=== PATIENT | male | born 1995 | race Caucasian/White ===

== ENCOUNTER 2019-09-24 13:07 | Emergency (ER) | payer OTHER ==
[~2019-09-24] VITALS: Ht 175.3 cm; Wt 90.9 kg
[2019-09-24] MEDS ORDERED: HYDROCODONE/ACETAMINOPHEN 5-325 MG TABLET PO ONE (15:00)
[2019-09-24 17:09] VITALS: BP 121/88
== END 2019-09-24 17:12 | disposition home or self-care (01) ==
LOC: EMS 13:09
DX: S00.83XA Contusion of other part of head, initial encounter (principal); S00.12XA Contusion of left eyelid and periocular area, initial encounter; S80.212A Abrasion, left knee, initial encounter; S80.211A Abrasion, right knee, initial encounter; F32.9 Major depressive disorder, single episode, unspecified; F17.210 Nicotine dependence, cigarettes, uncomplicated; Y04.8XXA Assault by other bodily force, initial encounter; Y93.89 Activity, other specified; Y92.89 Other specified places as the place of occurrence of the external cause; Y99.8 Other external cause status
CPT/HCPCS: 70450; 70486

== ENCOUNTER 2024-05-22 03:56 | Emergency (ER) | payer OTHER ==
[~2024-05-22] VITALS: Ht 177.8 cm; Wt 102.7 kg
[2024-05-22 04:14] VITALS: BP 141/68; PULSE 99; RESP 20; TEMP 98.8; O2SAT 96
[2024-05-22] MEDS: PERTUSS(ACELL),DIPH,TET/PF 0.5 ML SYRINGE [ADULT] IM. ONE (05:01)
[2024-05-22] MEDS: ACETAMINOPHEN 325 MG TABLET PO ONE (05:08)
== END 2024-05-22 06:15 | disposition home or self-care (01) ==
LOC: EMS 03:56
DX: S51.811A Laceration without foreign body of right forearm, initial encounter (principal); S40.022A Contusion of left upper arm, initial encounter; F17.210 Nicotine dependence, cigarettes, uncomplicated; F32.A Depression, unspecified; Y08.89XA Assault by other specified means, initial encounter; Y93.89 Activity, other specified; Y92.89 Other specified places as the place of occurrence of the external cause; Y99.8 Other external cause status
CPT/HCPCS: 12001; 90471; 90715; 99283

== ENCOUNTER 2024-07-22 00:57 | Emergency (ER) | payer OTHER ==
[~2024-07-22] VITALS: Ht 170.2 cm; Wt 82.0 kg
[2024-07-22 02:15] VITALS: TEMP 98.2
[2024-07-22] MEDS: LORazepam 1 MG TABLET PO ONE (02:50)
[2024-07-22 04:07] VITALS: BP 122/71; PULSE 62; RESP 16; O2SAT 98
== END 2024-07-22 04:40 | disposition home or self-care (01) ==
LOC: EMS 00:58
DX: T43.611A Poisoning by caffeine, accidental (unintentional), initial encounter (principal); F41.9 Anxiety disorder, unspecified; F17.210 Nicotine dependence, cigarettes, uncomplicated; Y92.89 Other specified places as the place of occurrence of the external cause
CPT/HCPCS: 99283

== ENCOUNTER 2024-07-24 13:32 | Emergency (ER) | payer OTHER ==
[~2024-07-24] VITALS: Ht 175.3 cm; Wt 84.0 kg
[2024-07-24 13:35] VITALS: BP 126/79; PULSE 67; RESP 16; TEMP 98.3; O2SAT 98
[2024-07-24 15:16] LABS: BASOPHILS % (AUTO) 0.6 % (0.0-2.0); EOSINOPHILS % (AUTO) 2.4 % (1.0-6.0); HEMATOCRIT 45.4 % (41-53); HEMOGLOBIN 14.7 g/dL (13.5-17.5); LYMPHOCYTES # (AUTO) 2.6 K/uL (1.0-4.8); LYMPHOCYTES % (AUTO) 29.4 % (22.0-44.0); MEAN CORPUSCULAR HEMOGLOBIN 30.6 pg (26.0-34.0); MEAN CORPUSCULAR HGB CONC 32.3 G/dL (31.0-37.0); MEAN CORPUSCULAR VOLUME 95 fL (80-100); MONOCYTES # (AUTO) 0.7 K/uL (0.1-1.0); MONOCYTES % (AUTO) 8.1 % (2.0-9.0); NEUTROPHILS # (AUTO) 5.2 K/uL (1.8-7.7); NEUTROPHILS % (AUTO) 59.5 % (40.0-70.0); PLATELET COUNT (AUTO) 263 K/uL (150-450); RED CELL DISTRIBUTION WIDTH 13.6 % (11.5-14.5); WHITE BLOOD COUNT (AUTO) 8.7 K/uL (4.5-11.0)
[2024-07-24 15:27] LABS: ANION GAP 6 mmol/L (8-16); CALCIUM, TOTAL 9.2 mg/dL (8.8-10.5); CARBON DIOXIDE 30 mmol/L (22-29); CHLORIDE 103 mmol/L (98-107); CREATININE 0.78 mg/dL (0.60-1.30); GLOMERULAR FILTR. RATE CALC > 60 mL/min (>60); GLUCOSE,RANDOM 97 mg/dL (70-110); POTASSIUM 3.3 mmol/L (3.5-5.1); SODIUM SERUM 139 mmol/L (136-145); UREA NITROGEN, BLOOD 12 mg/dL (7-18)
[2024-07-24 15:35] LABS: ALCOHOL, BLOOD (SERUM) < 3 mg/dL (0-10)
[2024-07-24 15:36] LABS: TROPONIN I-HIGH SENSITIVITY 10 ng/L (<76)
[2024-07-24 15:40] LABS: COVID AG,FIA SOURCE NASAL SWAB
[2024-07-24] MEDS: POTASSIUM CHLORIDE 20 MEQ ER TABLET PO ONE (16:05)
[2024-07-24] MEDS: LORazepam 1 MG TABLET PO ONE (16:05)
[2024-07-24 16:25] LABS: SARS-COV2 (COVID) ANTIGEN,FIA Negative (Negative)
== END 2024-07-24 16:24 | disposition home or self-care (01) ==
LOC: EMS 13:32
DX: F41.9 Anxiety disorder, unspecified (principal); R06.02 Shortness of breath; F17.210 Nicotine dependence, cigarettes, uncomplicated; Z20.822 Contact with and (suspected) exposure to COVID-19
CPT/HCPCS: 99285; 71045; 87426; 80048; 84484; 85025; 36415; 93005; G0480

== ENCOUNTER 2025-03-27 07:59 | Emergency (ER) | payer OTHER ==
[~2025-03-27] VITALS: Ht 180.3 cm; Wt 102.3 kg
[2025-03-27 08:06] VITALS: BP 102/76; PULSE 67; RESP 18; TEMP 97.7; O2SAT 98
[2025-03-27] MEDS ORDERED: CEPH-558 PO (08:19)
[2025-03-27] MEDS ORDERED: PRED-554 PO (08:19)
[2025-03-27] MEDS ORDERED: SULF-261 PO (08:19)
[2025-03-27] MEDS: SULFAMETHOX/TRIMETH DS 800-160 MG/TABLET PO ONE (08:21)
[2025-03-27] MEDS: CEPHALEXIN MONOHYDRATE 500 MG CAPSULE PO ONE (08:21)
== END 2025-03-27 08:26 | disposition home or self-care (01) ==
LOC: EMS 07:59
DX: K13.0 Diseases of lips (principal); F41.9 Anxiety disorder, unspecified; F32.A Depression, unspecified; F17.210 Nicotine dependence, cigarettes, uncomplicated; F12.90 Cannabis use, unspecified, uncomplicated
CPT/HCPCS: 99284; J7512

== ENCOUNTER 2025-06-08 18:14 | Emergency (ER) | payer SELFPAY ==
[~2025-06-08] VITALS: Ht 177.8 cm; Wt 99.5 kg
[~2025-06-08 18:14] MED LIST: CEPH-558 PO; PRED-554 PO; SULF-261 PO
[2025-06-08] MEDS ORDERED: LIDO-57 TP (19:39)
[2025-06-08] MEDS ORDERED: METH-659 PO (19:39)
[2025-06-08] MEDS ORDERED: IBUP-1492 PO (19:39)
[2025-06-08 19:53] VITALS: BP 110/67; PULSE 64; RESP 16; TEMP 98; O2SAT 100
[2025-06-08] MEDS: LIDOCAINE 5% TRANSDERMAL PATCH TD ONE (20:10)
[2025-06-08] MEDS: KETOROLAC TROMETHAMINE 60 MG/2 ML VIAL IM ONE (20:11)
== END 2025-06-08 20:28 | disposition home or self-care (01) ==
LOC: EMS 18:15
DX: S29.012A Strain of muscle and tendon of back wall of thorax, initial encounter (principal); S39.012A Strain of muscle, fascia and tendon of lower back, initial encounter; F12.90 Cannabis use, unspecified, uncomplicated; F17.210 Nicotine dependence, cigarettes, uncomplicated; Z79.52 Long term (current) use of systemic steroids; Z79.899 Other long term (current) drug therapy; V43.62XA Car passenger injured in collision with other type car in traffic accident, initial encounter; Y93.89 Activity, other specified; Y92.410 Unspecified street and highway as the place of occurrence of the external cause; Y99.8 Other external cause status
CPT/HCPCS: 99283; 96372; J1885